=== PATIENT | male | born 1950 | race Caucasian/White ===

== ENCOUNTER 2018-04-28 10:49 | Emergency (ER) | payer OTHER ==
[2018-04-28 11:26] LABS: BASOPHILS % (AUTO) 0.9 %; EOSINOPHILS % (AUTO) 0.8 %; HGB - HEMOGLOBIN 16.3 g/dL (14.0-18.0); LYMPHOCYTES # (AUTO) 1.4 10^3/uL (1.5-3.5); LYMPHOCYTES % (AUTO) 24.9 %; MEAN CORPUSCULAR HEMOGLOBIN 32.5 pg (27.0-31.0); MEAN CORPUSCULAR HGB CONC 34.5 g/dL (32.0-36.0); MEAN CORPUSCULAR VOLUME 94.2 fL (80.0-94.0); MEAN PLATELET VOLUME 9.4 fL (7.4-11.4); MONOCYTES # (AUTO) 0.5 10^3/uL (0.0-1.0); MONOCYTES % (AUTO) 8.5 %; NEUTROPHILS # (AUTO) 3.7 10^3/uL (1.5-6.6); NEUTROPHILS % (AUTO) 64.9 %; PLT - PLATELET COUNT 122 10^3/uL (130-450); RED BLOOD COUNT 5.01 10^6/uL (4.70-6.10); RED CELL DISTRIBUTION WIDTH 13.7 % (12.0-15.0); WHITE BLOOD COUNT 5.7 x10^3/uL (4.8-10.8)
[2018-04-28 11:42] LABS: ALBUMIN 4.4 g/dL (3.2-5.5); ALBUMIN/GLOBULIN RATIO 0.9 (1.0-2.2); BILIRUBIN,TOTAL 1.5 mg/dL (0.2-1.0); CALCIUM 9.6 mg/dL (8.5-10.3); TOTAL PROTEIN 9.2 g/dL (6.7-8.2)
[2018-04-28] MEDS ORDERED: HYDROmorphone 1 MG/ML CARPUJECT IVP STA (11:55)
[2018-04-28] MEDS ORDERED: ONDANSETRON 4 MG/2 ML VIAL IVP STA (11:55)
[2018-04-28] MEDS ORDERED: SODIUM CHLORIDE 0.9% 1,000 ML IV ONE ×2 (11:55)
--- NOTE | 2018-04-28 12:08 | ED Physician Documentation ---
PD HPI ABD PAIN - Stated complaint Stated Complaint: ABD PX - Chief complaint Chief Complaint: Abd Pain - History obtained from History obtained from: Patient, Family - History of Present Illness Timing - onset: How many hours ago (4) Timing - duration: Hours (4) Timing - details: Abrupt onset Pain level max: 10 Pain level now: 10 Quality: Cramping, Sharp Location: Periumbilical Improved by: Other (nothing) Worsened by: Eating Associated symptoms: No: Fever, Nausea, Vomiting, Hematemesis, Diarrhea, Constipation, Melena, Hematochezia, Dysuria Similar symptoms before: Has not had sx before Recently seen: Not recently seen - Additional information Additional information: Patient is a 67-year-old male who presents to the emergency department with abdominal pain today. Described as sharp and stabbing. Appears to come in waves. Last for about 20-30 seconds at a time and then resolves. He is asymptomatic in between episodes. He uses medical marijuana daily for chronic back pain. Does have baclofen but has not taken it for some time. Also has Anabel at home but has not taken this for over a month. His only abdominal surgery is appendectomy many years ago. The pain started while drinking coffee and eating a doughnut this morning. Review of Systems Ten Systems: 10 systems reviewed and negative Constitutional: denies: Fever, Chills Cardiac: denies: Chest pain / pressure Respiratory: denies: Cough GI: denies: Nausea, Vomiting, Constipation, Diarrhea, Hematemesis, Bloody / black stool : denies: Dysuria, Frequency, Hesitancy Skin: denies: Rash Musculoskeletal: denies: Neck pain, Back pain Neurologic: denies: Headache PD PAST MEDICAL HISTORY - Past Medical History Past Medical History: Yes Respiratory: COPD Musculoskeletal: Other - Past Surgical History Past Surgical History: Yes General: Appendectomy Ortho: Spine surgery - Present Medications Home Medications: Ambulatory Orders Medication Instructions Recorded Confirmed Hyoscyamine Sulfate [Levsin-Sl] 0.125 mg SL Q6H PRN #20 tab.subl 04/28/18 Ondansetron Odt [Zofran] 4 mg TL Q6H PRN #10 tablet 04/28/18 Oxycodone HCl/Acetaminophen 1 - 2 each PO Q6H PRN #14 tablet 04/28/18 [Percocet 5-325 mg Tablet] - Allergies Allergies/Adverse Reactions: Allergies Allergy/AdvReac Type Severity Reaction Status Date / Time No Known Drug Allergies Allergy Verified 04/28/18 11:05 - Social History Does the pt smoke?: No Smoking Status: Former smoker Does the pt drink ETOH?: Yes ETOH Use: Beer Does the pt have substance abuse?: No Substance Use and Type: Marijuana PD ED PE NORMAL - Vitals Vital signs reviewed: Yes - General General: Alert and oriented X 3, No acute distress - HEENT HEENT: Moist mucous membranes - Neck Neck: Supple, no meningeal sign - Cardiac Cardiac: RRR - Respiratory Respiratory: No respiratory distress, Clear bilaterally - Abdomen Abdomen: Soft, Non tender, Non distended - Back Back: No CVA TTP - Derm Derm: Warm and dry - Extremities Extremities: No edema - Neuro Neuro: Alert and oriented X 3 - Psych Psych: Normal mood, Normal affect Results - Vitals Vitals: Vital Signs - 24 hr 04/28/18 04/28/18 04/28/18 10:58 12:31 13:29 Temperature 36.9 C Heart Rate 73 57 L 63 Respiratory 20 14 12 Rate Blood Pressure 158/87 H 142/91 H 148/89 H O2 Saturation 100 98 100 04/28/18 04/28/18 14:33 14:38 Temperature 36.9 C Heart Rate 65 65 Respiratory 17 18 Rate Blood Pressure 138/81 H 139/95 H O2 Saturation 96 97 Oxygen O2 Source Room air - Labs Labs: Laboratory Tests 04/28/18 04/28/18 04/28/18 11:19 11:19 11:19 WBC 5.7 RBC 5.01 Hgb 16.3 Hct 47.2 MCV 94.2 H MCH 32.5 H MCHC 34.5 RDW 13.7 Plt Count 122 L MPV 9.4 Neut # (Auto) 3.7 Lymph # (Auto) 1.4 L [place] # (Auto) 0.5 Eos # (Auto) 0.0 Baso # (Auto) 0.0 Absolute Nucleated RBC 0.01 Nucleated RBC % 0.1 Sodium 137 Potassium 3.7 Chloride 103 Carbon Dioxide 22 Anion Gap 12.0 BUN 17 Creatinine 1.0 Estimated GFR (MDRD) 75 L Glucose 126 H Calcium 9.6 Total Bilirubin 1.5 H AST 74 H ALT 109 H Alkaline Phosphatase 91 Troponin I < 0.04 Total Protein 9.2 H Albumin 4.4 Globulin 4.8 H Albumin/Globulin Ratio 0.9 L Lipase 90 H - Rads (name of study) CT abdomen and pelvis Radiology: Prelim report reviewed, EMP read contemporaneously, See rad report ( normal CT) PD MEDICAL DECISION MAKING - ED course Complexity details: reviewed results, re-evaluated patient, considered differential, d/w patient, d/w family ED course: Patient is a 67-year-old male who presents to the emergency department with intermittent abdominal pain. Unclear etiology. Normal laboratory testing and CT scan. Pain well controlled after a single dose of Dilaudid. Then was placed on oxycodone and Levsin. Pain did not recur. Will trial on pain medication for the next few days and see how he progresses. No evidence of ischemia. He is very well-appearing, nontoxic. Tolerating p.o. without difficulty. Did not seem consistent with biliary pain. Possible small ileus? Patient and family counseled regarding signs and symptoms for which I believe and urgent re-evaluation would be necessary. Patient with good understanding of and agreement to plan and is comfortable going home at this time This document was made in part using voice recognition software. While efforts are made to proofread this document, sound alike and grammatical errors may occur. - Sepsis Event Vital Signs: Vital Signs - 24 hr 04/28/18 04/28/18 04/28/18 10:58 12:31 13:29 Temperature 36.9 C Heart Rate 73 57 L 63 Respiratory 20 14 12 Rate Blood Pressure 158/87 H 142/91 H 148/89 H O2 Saturation 100 98 100 04/28/18 04/28/18 14:33 14:38 Temperature 36.9 C Heart Rate 65 65 Respiratory 17 18 Rate Blood Pressure 138/81 H 139/95 H O2 Saturation 96 97 Oxygen O2 Source Room air Departure - Departure Disposition: 01 Home, Self Care Clinical Impression: Abdominal pain Qualifiers: Abdominal location: generalized Qualified Code(s): R10.84 - Generalized abdominal pain Condition: Good Instructions: ED Abdominal Pain Unkn Cause Follow-Up: your,doctor in 1 week [Other] Prescriptions: Hyoscyamine Sulfate [Levsin-Sl] 0.125 mg SL Q6H PRN #20 tab.subl PRN Reason: Abdominal Pain Ondansetron Odt [Zofran] 4 mg TL Q6H PRN #10 tablet PRN Reason: Nausea / Vomiting Oxycodone HCl/Acetaminophen [Percocet 5-325 mg Tablet] 1 - 2 each PO Q6H PRN # 14 tablet PRN Reason: pain Comments: The cause of your symptoms is unclear today. Your laboratory tests and CT scan are normal. Please follow-up with your doctor for further evaluation and care. Drink plenty of water at home. Return if you worsen Do not drink alcohol or drive while on narcotic pain medicine. Note that many narcotic pain relievers also contain tylenol/acetaminophen. Please ensure that your total dose of acetaminophen from all sources does not exceed 3 grams (3000mg) per day. You may constipated on this medication, take a stool softener such as "Colace" twice a day while you are on it. Also recommend a [id number] laxative such as senna or MiraLAX any day that you do not have a bowel movement. If you received narcotic pain medication in the emergency department, do not drive or operate machinery for the next 24 hours. Discharge Date/Time: 04/28/18 14:38
[2018-04-28] MEDS ORDERED: IOPAMIDOL-300 100 ML VIAL ONE (12:22)
--- NOTE | 2018-04-28 13:07 | CT Report ---
Reason: abd pain, mid abdomen Procedure Date: 04/28/2018 Accession Number: [id number] / [id number] Procedure: CT - Abdomen/Pelvis W/ CPT Code: FULL RESULT: EXAM: CT ABDOMEN AND PELVIS EXAM DATE: 04/28/2018 12:44 PM. CLINICAL HISTORY: Mid abdominal pain COMPARISONS: None. TECHNIQUE: Routine helical CT imaging was performed through the abdomen and pelvis. IV contrast: ISOVUE 300 100mL. Enteric contrast: No. Reconstructions: Coronal and sagittal. In accordance with CT protocol optimization, one or more of the following dose reduction techniques were utilized for this exam: automated exposure control, adjustment of mA and/or KV based on patient size, or use of iterative reconstructive technique. FINDINGS: Lung Bases: Unremarkable. Liver: Segment 8 6 mm hypodensity, possibly cyst or hemangioma. There may be mild fatty liver infiltration. Gallbladder/Bile Ducts: Unremarkable. Spleen: Normal. Pancreas: Normal. Adrenal Glands: Normal. Kidneys: No masses or hydronephrosis. Peritoneal Cavity/Bowel: No free air or free fluid. There is extensive primarily sigmoid diverticulosis without focal evidence of acute diverticulitis. Appendix is not clearly visualized; no pericecal inflammatory changes are evident. No evidence of obstruction. Pelvic Organs: Normal. The bladder and visualized pelvic organs are within normal limits. Vasculature: No aneurysms or other significant abnormality. Bones: No significant abnormality. Status post L4-S1 PLIF. Other: None. IMPRESSION: 1. No definite acute abdominopelvic findings. 2. Diverticulosis without evidence of acute diverticulitis. 3. Probable fatty liver. 4. Nonspecific subcentimeter hepatic hypodensity, possibly cyst or hemangioma. 5. Other findings as noted above. [facility]
[2018-04-28] MEDS ORDERED: IOPAMIDOL-300 100 ML VIAL IVP ONE (13:15)
[2018-04-28] MEDS ORDERED: HYOSCYAMINE SL 0.125 MG TABLET SL STA (13:35)
[2018-04-28] MEDS ORDERED: oxyCODONE 5 MG TABLET PO STA (13:35)
[2018-04-28 14:40] VITALS: BP 139/95
== END 2018-04-28 14:38 | disposition home or self-care (01) ==
LOC: ED 10:49
DX: R10.84 Generalized abdominal pain (principal); J44.9 Chronic obstructive pulmonary disease, unspecified; Z87.891 Personal history of nicotine dependence
CPT/HCPCS: 36415; 74177; 80053; 83690; 84484; 85025; 93005; 96361; 96374; 99284; A9270; J1170; Q9967